=== PATIENT | male | born 1945 | race Two or more races ===

== ENCOUNTER 2025-03-01 06:18 | Day surgery (SDC) | payer MEDICARE, SELFPAY ==
[2025-02-25 15:04] VITALS: BMI 32.7
[2025-03-01] MEDS: LACTATED RINGERS 1000ML 1,000 ML 50 ML IV (07:13)
[2025-03-01 07:16] VITALS: BP 163/106; PULSE 83; RESP 18; TEMP 36.6; O2SAT 97
--- NOTE | 2025-03-01 07:36 | P.PNANES_ITS ---
[facility] Disclaimer: The information contained in this section may have been updated after the patient was seen, as this information can be updated by other users. Medical History Sarcoidosis Hyperlipidemia Hypertension Hypothyroid Spinal stenosis Surgical History History of surgery on lower extremity History of right knee joint replacement Family History Other No significant family history Social History Smoking Status: Never smoker alcohol intake: never substance use type: denies use current occupational status: retired Travel in the last 8 weeks: None [facility] Anesthesia Checklist Patient Identification Patient Identification: Arm Band and Verbal (Name & ) Structural Data Admitted From: Home Planned Operative Procedure/s: Colonoscopy Verified Documents: Surgical Consent NPO Status Verified Time NPO: 00:00 Chart Verification Results Verified: None Additional verifications Patient : No Anesthesia Reactions: No Hx Blood Transfusions: No Blood Transfusion Reaction: No Cephalosporin Allergy: No Previous Colonoscopy: Yes Airway Assessment Mallampati Score:: Class II C-Spine Mobility Assessed: Yes TMJ Mobility Assessed: No Dentition: Good Dentition Neurological Assessment Level of Consciousness: Awake, Alert and Appropriate Hx Seizures: No Numbness or tingling in extremities: Yes (Numbess down RLE, has appointment with neurosurgeon) Anesthesia Plan Anesthesia Risk discussed: Yes Anesthesia Plan: Verified ASA Class: II Anesthesia Type: MAC
--- NOTE | 2025-03-01 07:55 | EXP.HP ---
History of Present Illness *Admission Date: 03/01/25 *Reason for visit:: Personal history of adenomatous colon polyps *History of present illness: Mr. Wharton is a 79-year-old gentleman who is here for surveillance colonoscopy secondary to a personal history of adenomatous colon polyps. The examination is deemed medically necessary for surveillance colonoscopy. The patient has been seen, interviewed and examined prior to the procedure by both myself and the anesthesia provider. [facility] Disclaimer: The information contained in this section may have been updated after the patient was seen, as this information can be updated by other users. Medical History Sarcoidosis Hyperlipidemia Hypertension Hypothyroid Spinal stenosis Surgical History History of surgery on lower extremity History of right knee joint replacement Family History Other No significant family history Social History (Updated 03/01/25 @ 07:38 by Murphy Dominguez CRNA) Smoking Status: Never smoker alcohol intake: never substance use type: denies use current occupational status: retired Travel in the last 8 weeks: None Have you lived/traveled outside [place] in past 30 days?: No Contact w/someone who lives/traveled outside US past 30 days?: No Exposure to someone with infectious disease in past 14 days?: No Do you have a fever (greater than 100.4 F or 38 C)?: No Have you tested positive for COVID-19: No Exposed to someone with COVID-19 in past 14 days?: No Do you have a sore throat?: No Do you have a cough?: No Do you have any weakness?: No Are you experiencing any nausea/vomitting?: No Do you have any diarrhea?: No Are you experiencing any unusual bleeding?: No Do you have any muscle aches/pain?: No Do you have any abdominal pain?: Yes Are you experiencing loss of taste or smell?: No Other Medical History Have you received the Pneumonia Vaccine: Yes Review of Systems Review of Systems Review of systems (narrative): Negative *Cardiovascular Comments: Negative *Gastrointestinal Comments: Negative *Genitourinary Comments: Negative *Musculoskeletal Comments: Negative *Neurologic Comments: Negative Meds Home Medications and Allergies Home Medications ?Medication ?Instructions ?Recorded ?Confirmed ?Type acyclovir 400 mg tablet 400 mg PO BID 08/19/24 03/01/25 History atorvastatin 10 mg tablet 10 mg PO DAILY 08/19/24 03/01/25 History cholecalciferol (vitamin D3) 125 125 mcg PO DAILY 08/19/24 03/01/25 History mcg (5,000 unit) capsule doxazosin 4 mg tablet 4 mg PO DAILY 08/19/24 03/01/25 History ferrous sulfate 325 mg (65 mg 325 mg PO DAILY 08/19/24 03/01/25 History iron) tablet (FeroSul) folic acid 1 mg tablet 1 mg PO DAILY 08/19/24 03/01/25 History levothyroxine 175 mcg tablet 200 mcg PO DAILY 08/19/24 03/01/25 History lisinopril 20 mg tablet 20 mg PO DAILY 08/19/24 03/01/25 History travoprost 0.004 % eye drops 1 drp ophthalmic (eye) HS 08/19/24 03/01/25 History sodium,potassium,mag sulfates 17.5 See Rx Instructions PO .COMPLEX 02/15/25 03/01/25 Rx gram-3.13 gram-1.6 gram oral soln #354 mL (Suprep Bowel Prep Kit) New Prescriptions to Start Prescriptions: Allergies Allergy/AdvReac Type Severity Reaction Status Date / Time codeine AdvReac Nausea Verified 03/01/25 07:14 Exam Data for Last 24 hours Vital signs and Labs for Last 24 Hours: Temp Pulse Resp BP Pulse Ox O2 Del Method 97.8 F 83 18 163/106 H 97 Room Air 03/01/25 07:16 03/01/25 07:16 03/01/25 07:16 03/01/25 07:16 03/01/25 07:16 03/01/25 07:16 *Routine HEENT Exam Head: Present normocephalic Eye: Present EOMI and PERRL ENT: Present mucous membranes moist *Routine Neck Exam Neck: Present supple *Routine Respiratory Exam Respiratory: Present CTA bilaterally *Routine Cardiovascular Exam Cardiovascular: Present RRR *Routine Abdominal Exam Abdominal: Present soft and normoactive bowel sounds; Absent tenderness *Routine Rectal Exam Rectal:: deferred *Routine Genitalia Exam Genitalia:: deferred *Routine Extremities Exam Extremities: Absent cyanosis, clubbing or edema *Routine Skin Exam Skin: Present warm; Absent rash *Routine Neurological Exam Neurological: Present alert and oriented X3 Assessment and Plan *Assessment and plan (1) Personal history of adenomatous and serrated colon polyps: Problem Comment: 1. Status: Acute Category: Medical Code(s): Z86.0101 - Personal history of adenomatous and serrated colon polyps Plan A/P: 1. Personal history of adenomatous colon polyps is the preprocedural diagnosis. The patient will be anesthetized/sedated using MAC sedation. The patient has been seen and examined. Cardiac and lung assessment prior to the examination is stable. Proceed with planned surveillance colonoscopy.
--- NOTE | 2025-03-01 07:57 | P.PCN_ITS ---
[facility] Procedure Note Date: 03/01/25 Time: 08:18 Procedure Note:: Colonoscopy Procedure Report: Colonoscopy with cold snare polypectomy Endoscopist: Roberto Ronquillo II, MD Referring physician: Alton Birmingham MD, [id number], [place] [address] Date of Procedure: March 01, 2025 Equipment: Olympus 190 variable stiffness pediatric colonoscope Sedation: MAC sedation Indication: Mr. Wharton is a 79-year-old gentleman who is here for follow-up surveillance colonoscopy. He does have a personal history of adenomatous colon polyps. He had a colonoscopy in March 2016 with md and had 4 polyps (tubular adenomas x 4) which were removed. His last colonoscopy in April 2021 revealed 8 polyps (tubular adenomas x 6/small serrated adenoma x 1/hyperplastic polyp x 1) removed. He reports no abdominal pain, weight loss, rectal bleeding or family history of colon cancer. He does have spinal stenosis and has some right lower extremity numbness. He also has noted some bowel control difficulties with urgency. He has had 2 or 3 bouts of fecal incontinence/accidents this year. He did slow down taking Metamucil. Procedure: Prior to the procedure, a history and physical exam was performed, and patient's medications and allergies were reviewed. The risks, benefits and alternatives of the sedation and procedure were discussed with the patient. All questions were answered and informed consent was obtained. The patient was brought to the procedure room. Patient identification and proposed procedure were verified by the physician and the nurse. The patient was placed in a left lateral decubitus position and the scope was passed under direct vision. Throughout the procedure, the patient's blood pressure, pulse, and oxygen saturations were monitored continuously. The colonoscopy was accomplished without difficulty. The patient tolerated the procedure well. Findings: On digital rectal examination there was normal rectal tone. There were no external hemorrhoids. The prostate was 2+, mildly firm but symmetric without nodules. The colonoscope was introduced through the anal canal to the rectum and advanced to the cecum. The ileocecal valve and appendiceal orifice were identified. The scope was advanced a short distance into the ileum which appeared grossly normal. The scope was then withdrawn into the colon. The cecum, ascending and transverse colon and mucosa were grossly normal. There were scattered diverticuli throughout the descending and sigmoid colon (LEFT colon). There were 2 diminutive polyps (descending x 1 (4 mm) and sigmoid x 1 (3 mm)). These were both removed via cold snare polypectomy. The rectum itself was normal. Upon retroflexion within the rectum there were grade 2 internal hemorrhoids. The preparation was excellent throughout with [place] Preparation Score of 9. The cecal time was 12 minutes. Impression: 1. Diminutive colonic polyps x 2 2. Left-sided diverticulosis 3. Grade 2 internal hemorrhoids Plan: I will follow-up the polyp histology. The patient should not require any further preventive/surveillance colonoscopy. I would recommend that he resume a bulking agent (i.e. FiberCon) daily. Regular bowel function and rectal evacuation is a delicate balance between the nerves and muscles of the rectum. The nerves that arise from the sacral spine are very closely tied to bowel evacuation. This sacral nervous system allows you to recognize when your rectum is full and allows you to correctly contract mus cles and hold on to stool appropriately before or until you get to the bathroom. It also allows your bowel/rectum to evacuate fully. When this balance is upset there is incorrect communication between the brain and the nervous system. This can result in the inability to control the passage of liquid and/or solid stool, involuntary leakage and sometimes loss of bowel control. Initially conservative therapy such as dietary measures and fiber bulk are utilized. The patient is going to meet with the neurosurgeon (Pola Olmedo MD) in regard to the association with his spinal stenosis.
[2025-03-01 08:00] VITALS: O2SAT 97
[2025-03-01 08:19] VITALS: BP 105/57; PULSE 73; RESP 17; TEMP 36.4; O2SAT 95
[2025-03-01 08:29] VITALS: BP 94/65; PULSE 70; RESP 17; O2SAT 93
[2025-03-01 08:39] VITALS: BP 106/59; PULSE 78; RESP 17; O2SAT 94
[2025-03-01 08:49] VITALS: BP 129/73; PULSE 74; RESP 17; O2SAT 96
== END 2025-03-01 09:15 | disposition home or self-care (01) ==
PROVIDERS: PCP General Practice; Visit Provider Internal Medicine Gastroenterology
PROC: 0DJD8ZZ Inspection of Lower Intestinal Tract, Via Natural or Artificial Opening Endoscopic (ICD-10-PCS; CPT 45378; principal; 2025-03-01 08:00)
DX: Z12.11 Encounter for screening for malignant neoplasm of colon (principal); Z86.0101 Personal history of adenomatous and serrated colon polyps; D12.4 Benign neoplasm of descending colon; D12.5 Benign neoplasm of sigmoid colon; K57.30 Diverticulosis of large intestine without perforation or abscess without bleeding; K64.1 Second degree hemorrhoids
CPT/HCPCS: 45385; J2405; J7120